=== PATIENT | female | born 1955 | race Caucasian/White ===

== ENCOUNTER 2017-01-25 16:49 | Emergency (ER) | payer OTHER ==
[~2017-01-25] VITALS: Ht 167.6 cm; Wt 95.0 kg
[2017-01-25] MEDS ORDERED: ACETAMINOPHEN 500 MG TABLET PO ONE (17:30)
[2017-01-25] MEDS ORDERED: SODIUM CHLORIDE FLUSH 10ML SYR IVF ONE (17:30)
[2017-01-25] MEDS ORDERED: SODIUM CHLORIDE 0.9% 1,000ML IVBOLUS ONE (17:30)
[2017-01-25 17:52] LABS: ASPARTATE AMINO TRANSFERASE 53 U/L (15-37); BLOOD UREA NITROGEN 9 mg/dL (7-18)
[2017-01-25] MEDS ORDERED: MULT-204 PO (17:52)
[2017-01-25] MEDS ORDERED: CHOL100011 PO (17:52)
[2017-01-25] MEDS ORDERED: GLUC-104 PO (17:52)
[2017-01-25] MEDS ORDERED: OMEG-14 PO (17:52)
[2017-01-25] MEDS ORDERED: ACETAMINOPHEN 500 MG TABLET ONE (17:56)
[2017-01-25 17:58] LABS: IS PT STATUS REG ER OR PRE ER? YES
[2017-01-25 18:08] LABS: RAPID INFLUENZA A POSITIVE (Negative); RAPID INFLUENZA B Negative (Negative)
[2017-01-25] MEDS ORDERED: OMNIPAQUE 350 MG/ML, 100ML BOTTLE ONE (18:15)
[2017-01-25 19:53] VITALS: BP 119/62
== END 2017-01-25 21:03 | disposition home or self-care (01) ==
LOC: ED 20:57
DX: J09.X2 Influenza due to identified novel influenza A virus with other respiratory manifestations (principal); Z88.2 Allergy status to sulfonamides; Z88.1 Allergy status to other antibiotic agents
CPT/HCPCS: 36415; 71010; 71275; 80053; 81003; 83605; 84145; 84484; 85025; 87040; 87400; 93005; 93971; 96360; 96361; 99285; J7030; Q9967